=== PATIENT | female | born 1985 | race Caucasian/White ===

== ENCOUNTER → 2016-12-31 | Outpatient (CLI) | payer OTHER, MEDICAID | LOC: FIMAGING 15:39 | PROVIDERS: ATTEND Family Medicine | DX: M71.21 Synovial cyst of popliteal space [Baker], right knee (principal); M71.22 Synovial cyst of popliteal space [Baker], left knee; R60.9 Edema, unspecified ==

== ENCOUNTER → 2017-01-05 | Outpatient (CLI) | payer MEDICAID | LOC: FIMAGING 12:41 | PROVIDERS: ATTEND Family Medicine Sports Medicine | DX: M25.562 Pain in left knee (principal) ==

== ENCOUNTER → 2017-08-18 | Outpatient (CLI) | payer MEDICAID | LOC: FIMAGING 10:22 | PROVIDERS: ATTEND Family Medicine Sports Medicine | DX: M22.42 Chondromalacia patellae, left knee (principal) ==

== ENCOUNTER 2017-10-28 19:41 | Emergency (ER) | payer MEDICAID ==
--- NOTE | 2017-10-28 20:59 | EDPHY ---
H & P Time Seen by Provider: 10/28/17 20:35 HPI/ROS: CHIEF COMPLAINT: Right knee pain HISTORY OF PRESENT ILLNESS: Patient is a 32-year-old female presents emergency department right knee pain. Patient states that she was the passenger in the car when she got"OCD."This caused her to jump into the middle seat. She banged her knee on the middle seat. She had mild pain initially. She went home in her pain increased. She complains of right patellar discomfort. It does not radiate. She was able to ambulate. No numbness or tingling. No other injury. REVIEW OF SYSTEMS: Negative Past Medical/Surgical History: Includes hand surgery, cholecystectomy, tubal ligation Social history: The patient smokes Smoking Status: Light smoker Physical Exam: Vitals noted General Appearance: Alert and no distress. Head: Pupils equal. Normal. Respiratory: No respiratory distress. Cardiac: regular rate and rhythm. Extremities: [Patient's right leg appears normal. There is no significant swelling or bruising of the right patella. There is a small abrasion. The patient has mild right patellar tenderness to palpation with no crepitus. Patient has full range of motion of her right knee. Neurovascular intact distally.. Skin: No rashes or lesions. Neuro: Alert. Normal mood and affect. Constitutional: Initial Vital Signs Temperature (C) 36.8 C 10/28/17 20:07 Heart Rate 80 10/28/17 20:07 Respiratory Rate 16 10/28/17 20:07 O2 Sat (%) 98 10/28/17 20:07 O2 Delivery Mode Room Air Allergies/Adverse Reactions: No Known Allergies Allergy (Verified 10/28/17 20:07) Home Medications: Medication Instructions Recorded NK [No Known Home Meds] 10/16/15 Medical Decision Making ED Course/Re-evaluation: In the emergency department I discussed possible etiologies with the patient. I answered all her questions. X-ray of her right knee was ordered. knee x-ray: Please refer the dictated report. No acute disease noted. I discussed the results with the patient. I answered all her questions. Patient was given follow-up with Orthopedics. She will return with worsening symptoms. Differential Diagnosis: My differential includes but is not limited to fracture, dislocation, contusion , strain Departure - Departure Disposition: Home, Routine, Self-Care Clinical Impression: Contusion of right knee Qualifiers: Encounter type: initial encounter Qualified Code(s): S80.01XA - Contusion of right knee, initial encounter Condition: Good Instructions: Knee Pain (ED) Additional Instructions: Your x-ray was negative. Return with worsening symptoms or any other concerns. Referrals: Solomon Faustin MD [Primary Care Provider] - 5-7 days, call for appt.
[2017-10-28 21:17] VITALS: BP 130/76
== END 2017-10-28 21:16 | disposition home or self-care (01) ==
DX: S80.01XA Contusion of right knee, initial encounter (principal); F17.200 Nicotine dependence, unspecified, uncomplicated; X58.XXXA Exposure to other specified factors, initial encounter; Y92.810 Car as the place of occurrence of the external cause; Y99.8 Other external cause status; Y93.39 Activity, other involving climbing, rappelling and jumping off

== ENCOUNTER 2017-11-06 20:23 | Emergency (ER) | payer MEDICAID ==
[2017-11-06] MEDS ORDERED: PREPARATION H 51 GM CRTUBE PR ONE (21:10)
--- NOTE | 2017-11-06 21:11 | EDPHY ---
General Time Seen by Provider: 11/06/17 21:08 Narrative: CHIEF COMPLAINT: rectal pain, hemorrhoids HISTORY OF PRESENT ILLNESS: Patient complains of painful bowel movements rectal pain. This has been present for few days. She has no abdominal pain. No nausea, vomiting or diarrhea. No blood in the stool. She has been hesitant to have bowel movements due to the pain. She has tried stool softeners with no change. No history of inflammatory bowel or instrumentation. No trauma or injury. Minimal pain at rest. No other associated complaints or modifying factors REVIEW OF SYSTEMS: Ten systems reviewed and are negative unless otherwise noted in the HPI SPECIALISTS: None PAST MEDICAL HISTORY: Uncomplicated PAST SURGICAL HISTORY: No recent surgery SOCIAL HISTORY: Lives and works here independently. FAMILY HISTORY: Noncontributory EXAMINATION General Appearance: Alert, no distress Head: normocephalic, atraumatic Eyes: Pupils equal and round, no conjunctival pallor or injection ENT, Mouth: Mucous membranes moist Neck: Normal inspection, supple, non-tender Respiratory: Lungs are clear to auscultation Cardiovascular: Regular rate and rhythm Gastrointestinal: Abdomen is soft and nontender. No tympany rigidity. No guarding. Benign abdominal examination Rectal: Female RN (Faustina) present for exam. There are 2 external hemorrhoids at the 3 o'clock and 6 o'clock position that are nonthrombosed and nonbleeding. There is no abnormality of the perineum or perianal region. Neurological: A&O, nonfocal, normal gait Skin: Warm and dry, no rash. No cellulitis or abscess. Extremities: Nontender, no pedal edema Psychiatric: Mood and affect normal DIFFERENTIAL DIAGNOSES: Including but not limited to external hemorrhoids, internal hemorrhoids, perianal abscess, perirectal abscess MDM: 9:05 p.m. Two external hemorrhoids at the 3 o'clock and 6:00 position. These are not thrombosed. They are not actively bleeding. No evidence of perirectal or perineum cellulitis or abscess. I do feel she would benefit from topical treatment, oral pain medication and referral to gastroenterology and or primary care physician. I strongly recommended stool softeners and MiraLax of the next few days. I recommend increase fluid intake. I recommended return to emergency department cautions for any worsening pain, bleeding, difficulty with bowel movements. SUPERVISION: This patient was independently evaluated without direct involvement of or examination by the attending physician. - History Smoking Status: Light smoker - Objective Vital Signs: Initial Vital Signs Temperature (C) 97.9 F 11/06/17 20:25 Heart Rate 84 11/06/17 20:25 Respiratory Rate 20 11/06/17 20:25 Blood Pressure 100/71 11/06/17 20:25 O2 Sat (%) 99 11/06/17 20:25 O2 Delivery Mode Room Air Allergies/Adverse Reactions: No Known Allergies Allergy (Verified 10/28/17 20:07) Home Medications: Medication Instructions Recorded Hydrocortisone Acetate [Anucort-Hc] 25 mg RC QID #12 supp.rect 11/06/17 oxyCODONE HCL/ACETAMINOPHEN 1 each PO Q4-6PRN PRN #7 tablet 11/06/17 [Percocet 5-325 mg Tablet] Medications Given: Discontinued Medications Oxycodone/Acetaminophen (Percocet 5/325mg Prepack#4) 1 btl TAKEHOME EDNOW ONE Stop: 11/06/17 21:19 Last Admin: 11/06/17 21:25 Dose: 1 btl Phenyleph/Shark Oil/Glycerin/Petrol (Preparation H Cream) 1 delores OR EDNOW ONE Stop: 11/06/17 21:11 Last Admin: 11/06/17 21:25 Dose: 1 btl Departure - Departure Disposition: Home, Routine, Self-Care Clinical Impression: External hemorrhoids without complication Condition: Good Instructions: Oxycodone/Acetaminophen (By mouth), Laxative, Stool Softeners ( By mouth), Polyethylene Glycol 3350 (By mouth), Hemorrhoids (ED) Additional Instructions: 1. Percocet pain medication as prescribed as needed 2. Topical hemorrhoid therapy as prescribed as needed 3. Contact her primary care physician and the on-call GI physician as provided 4. ED precautions as discussed Referrals: Eloina Sellers MD [Primary Care Provider] - As per Instructions Prescriptions: Hydrocortisone Acetate [Anucort-Hc] 25 mg RC QID #12 supp.rect oxyCODONE HCL/ACETAMINOPHEN [Percocet 5-325 mg Tablet] 1 each PO Q4-6PRN PRN #7 tablet PRN Reason: Pain, Breakthrough
[2017-11-06] MEDS ORDERED: OXYCODONE/APAP 5/325MG PREPACK#4 BTL TAKEHOME ONE ×2 (21:18)
[2017-11-06 21:30] VITALS: BP 105/67
== END 2017-11-06 21:28 | disposition home or self-care (01) ==
DX: K64.4 Residual hemorrhoidal skin tags (principal); F17.200 Nicotine dependence, unspecified, uncomplicated

== ENCOUNTER → 2018-04-11 | Outpatient (CLI) | payer MEDICAID | LOC: FIMAGING 11:40 | PROVIDERS: ATTEND Family Medicine | DX: R05 Cough (principal); R06.02 Shortness of breath; R50.9 Fever, unspecified ==

== ENCOUNTER 2018-06-25 21:51 | Observation (INO) | payer MEDICAID ==
[2018-06-25] MEDS ORDERED: NS 1,000 ML IV ONE (21:58)
[2018-06-25] MEDS ORDERED: ONDANSETRON 4 MG/2 ML VIAL IVP ONE (21:58)
--- NOTE | 2018-06-25 21:58 | EDPHY ---
H & P Source: Patient, Old records Exam Limitations: No limitations - Personal History Tetanus Vaccine Date: 10 DAYS AG - Medical/Surgical History Hx Asthma: No Hx Chronic Respiratory Disease: No Hx Diabetes: No Hx Cardiac Disease: No Hx Renal Disease: No Hx Cirrhosis: No Hx Alcoholism: No Hx HIV/AIDS: No Hx Splenectomy or Spleen Trauma: No Other PMH: HAND SURGERY,CHOL, TUBAL LIGATION - Social History Smoking Status: Light smoker Time Seen by Provider: 06/25/18 21:56 HPI/ROS: HPI: This is a 33-year-old female who presents with Chief Complaint: Nausea, vomiting Location: GI Quality: Nausea, vomiting Duration: 2 hr prior to arrival Signs and Symptoms: no fever, + nausea, + vomiting, no hematemesis, no blood in stool, no abdominal bloating, no diarrhea, no back pain, no urinary symptoms, no vaginal bleeding/discharge, no indigestion, no chest pain, no shortness of breath Timing: Acute Severity: Moderate Context: The patient is generally healthy presents while driving down the [place] approximately 2 hr prior to arrival with sudden onset of dizziness and nausea accompanied by vomiting x4. She reports that she feels like she has chills and fatigue. She was feeling normal earlier in the day. Ate and drank without any difficulties. She has a history of cholecystectomy and tubal ligation. She called her when she pulled over to vomit the 1st time and told him that she did not feel well. She denies a headache, vision changes , room spinning, neck stiffness. Denies history of cardiac disease or family history of cardiac disease. Modifying Factors: None Comment: ROS: A comprehensive 10 system review of systems is otherwise negative aside from elements mentioned in the history of present illness. MEDICAL/SURGICAL/SOCIAL HISTORY: Medical history: Generally healthy. Does not take any regular medications. Surgical history: HAND SURGERY, cholecystectomy, TUBAL LIGATION Social history: Light smoker. . Denies alcohol and drug use. Family history noncontributory. CONSTITUTIONAL: Nontoxic-appearing adult white female, awake and alert, no obvious distress HEENT: Atraumatic and normocephalic, left pupil is equal and reactive; right pupil is sluggish; EOMI. Nares patent; no rhinorrhea; no nasal mucosal edema. Tympanic membranes clear. Oropharynx clear, no exudate and moist pink mucosa. Airway patent. No lymphadenopathy. No meningismus. Cardiovascular: Normal S1/S2, regular rate, regular rhythm, without murmur rub or gallop. PULMONARY/CHEST: Symmetrical and nontender. Clear to auscultation bilaterally. Good air movement. No accessory muscle usage. ABDOMEN: Soft, nondistended, nontender, no rebound, no guarding, no peritoneal signs, no masses or organomegaly. No CVAT. EXTREMITIES: 2/2 pulses, strength 5/5, no deformities, no clubbing, no cyanosis or edema. NEUROLOGICAL: no focal neuro deficits. GCS 15. SKIN: Warm and dry, cool to touch, no erythema. no rash. Good capillary refill. (Brenda Berrios) Constitutional: Initial Vital Signs Temperature (C) 36.5 C 06/25/18 21:59 Heart Rate 68 06/25/18 21:59 Respiratory Rate 16 06/25/18 21:59 Blood Pressure 113/75 06/25/18 21:59 O2 Sat (%) 100 06/25/18 21:59 O2 Delivery Mode Room Air Allergies/Adverse Reactions: No Known Allergies Allergy (Verified 06/25/18 21:57) Home Medications: Medication Instructions Recorded NK [No Known Home Meds] 06/25/18 Medical Decision Making - Diagnostics Imaging Results: Imaging Impressions Abdomen CT 06/25/18 21:58 Impression: 1. Intussuscepted loop of small bowel in the left upper quadrant of abdomen, likely jejunum, without obstruction. Recommend follow-up GI consult and upper endoscopy. 2. Mild constipation without bowel obstruction. 3. No appendicitis, abscess or pneumoperitoneum. 4. Nonobstructive right nephrolithiasis. Prominent bilateral ureters without evidence of ureterolithiasis. 5. Prior cholecystectomy without biliary ductal dilation. Findings and recommendations discussed with Emergency Department physicianBrenda at 22:40 hour, 06/25/2018. Final report concurs with initial preliminary interpretation. Head CT 06/25/18 22:02 Impression: 1. Normal CT brain without contrast. 2. Consider MRI of the brain, if there is continued clinical concern. Findings and recommendations discussed with Emergency Department physicianBrenda at 22:42 hour, 06/25/2018. Final report concurs with initial preliminary interpretation. ED Course/Re-evaluation: Vital signs reviewed and stable upon arrival. No systemic signs. Placed on diagnostic cardiac sonographer. IV access and laboratory studies along with head CT scan due to unequal pupils and dizziness and CT abdomen and pelvis scan due to sudden onset of nausea and vomiting. Urinalysis and EKG ordered. 2205: EKG shows normal sinus rhythm with artifact secondary to shaking from chills. Given 1 L normal saline and IV Zofran 4 mg Labs reviewed. No signs of leukocytosis/anemia/platelet dysfunction/SEAN/ elevated LFTs/electrolyte imbalance/pancreatitis/ACS/sepsis. 2240: called by, Dr. Jaeger, who advised that head CT scan shows no acute intracranial process. 2245: Called by radiologist, Dr. Jaeger, advised that CT abdomen and pelvis scan shows prior cholecystectomy, right breanna 4 mm stone nonobstructive, bilateral ureters are mildly dilated, right colon is full stool, no appendicitis , left upper quadrant proximal jejunum shows intussusception but no clear obstruction. 2250: ED decision to consult for admission. Patient is generally healthy with mild constipation and prior abdominal surgery. Spoke with Dr. Duckworth who kindly agrees to admit patient and provide further care and spoke with Dr. Zapata who reports that this is nonsurgical advises bowel rest and supportive care. 2310: Chart review shows that on 12/31/2015 Dr. Garvin performed in EEG that was essentially normal for"passing out spells." This patient was seen under the supervision of my secondary supervising physician. I evaluated care for this patient independently. Discussed this patient with Dr. Ramirez who did not see the patient. (Brenda Berrios) PHYSICIAN DOCUMENTATION: The patient was evaluated and managed by the Physician Financial Professional. My co- signature indicates that I have reviewed this chart and I agree with the findings and plan of care as documented. I am the secondary supervising physician. (Marla Ramirez) Differential Diagnosis: Dizziness including but not limited to peripheral and central causes of vertigo , orthostatic causes including dehydration, and blood loss. Abdominal pain including but not limited to appendicitis, cholecystitis, gastritis and urinary tract infection. (Brenda Berrios) - Data Points Laboratory Results: Laboratory Results 06/25/18 22:10 06/25/18 22:10 06/25/18 06/25/18 06/25/18 22:25 22:18 22:10 WBC RBC Hgb POC Hgb 13.9 gm/dL gm/dL (12.6-16.3) Hct POC Hct 41 % % (38-47) MCV MCH MCHC RDW Plt Count MPV Neut % (Auto) Lymph % (Auto) [place] % (Auto) Eos % (Auto) Baso % (Auto) Nucleat RBC Rel Count Absolute Neuts (auto) Absolute Lymphs (auto) Absolute Monos (auto) Absolute Eos (auto) Absolute Basos (auto) Absolute Nucleated RBC Immature Gran % Immature Gran # VBG Lactic Acid 2.0 mmol/L mmol/L (0.7-2.1) POC Sodium 143 mEq/L mEq/L (135-145) Sodium 140 mEq/L mEq/L (135-145) POC Potassium 3.5 mEq/L mEq/L (3.3-5.0) Potassium 3.9 mEq/L mEq/L (3.3-5.0) POC Chloride 106 mEq/L mEq/L (97-110) Chloride 109 mEq/L mEq/L (97-110) Carbon Dioxide 20 mEq/l L mEq/l (22-31) Anion Gap 11 mEq/L mEq/L (6-14) POC BUN 13 mg/dL mg/dL (7-23) BUN 14 mg/dL mg/dL (7-23) Creatinine 1.0 mg/dL mg/dL (0.6-1.0) POC Creatinine 0.9 mg/dL mg/dL (0.6-1.0) Estimated GFR > 60 Glucose 103 mg/dL H mg/dL (70-100) POC Glucose 106 mg/dL H mg/dL (70-100) Calcium 9.8 mg/dL mg/dL (8.5-10.4) Total Bilirubin 0.7 mg/dL mg/dL (0.1-1.4) Conjugated Bilirubin 0.2 mg/dL mg/dL (0.0-0.5) Unconjugated Bilirubin 0.5 mg/dL mg/dL (0.0-1.1) AST 20 IU/L IU/L (14-46) ALT 16 IU/L IU/L (9-52) Alkaline Phosphatase 65 IU/L IU/L (38-126) Total Protein 7.8 g/dL g/dL (6.3-8.2) Albumin 4.7 g/dL g/dL (3.5-5.0) Lipase 144 IU/L IU/L (23-300) Ethyl Alcohol < 10 mg/dL mg/dL (0-10) 06/25/18 22:10 WBC 9.49 10^3/uL 10^3/uL (3.80-9.50) RBC 4.61 10^6/uL 10^6/uL (4.18-5.33) Hgb 13.7 g/dL g/dL (12.6-16.3) POC Hgb Hct 40.2 % % (38.0-47.0) POC Hct MCV 87.2 fL fL (81.5-99.8) MCH 29.7 pg pg (27.9-34.1) MCHC 34.1 g/dL g/dL (32.4-36.7) RDW 13.2 % % (11.5-15.2) Plt Count 273 10^3/uL 10^3/uL (150-400) MPV 10.0 fL fL (8.7-11.7) Neut % (Auto) 62.4 % % (39.3-74.2) Lymph % (Auto) 21.4 % % (15.0-45.0) [place] % (Auto) 13.9 % H % (4.5-13.0) Eos % (Auto) 1.4 % % (0.6-7.6) Baso % (Auto) 0.5 % % (0.3-1.7) Nucleat RBC Rel Count 0.0 % % (0.0-0.2) Absolute Neuts (auto) 5.92 10^3/uL 10^3/uL (1.70-6.50) Absolute Lymphs (auto) 2.03 10^3/uL 10^3/uL (1.00-3.00) Absolute Monos (auto) 1.32 10^3/uL H 10^3/uL (0.30-0.80) Absolute Eos (auto) 0.13 10^3/uL 10^3/uL (0.03-0.40) Absolute Basos (auto) 0.05 10^3/uL 10^3/uL (0.02-0.10) Absolute Nucleated RBC 0.00 10^3/uL 10^3/uL (0-0.01) Immature Gran % 0.4 % % (0.0-1.1) Immature Gran # 0.04 10^3/uL 10^3/uL (0.00-0.10) VBG Lactic Acid POC Sodium Sodium POC Potassium Potassium POC Chloride Chloride Carbon Dioxide Anion Gap POC BUN BUN Creatinine POC Creatinine Estimated GFR Glucose POC Glucose Calcium Total Bilirubin Conjugated Bilirubin Unconjugated Bilirubin AST ALT Alkaline Phosphatase Total Protein Albumin Lipase Ethyl Alcohol Medications Given: Potassium Chloride/Dextrose/Sod Cl (D5w 1/2 Ns W/ 20 Kcl/L) 1,000 mls @ 100 mls /hr IV CONT YASSINE Stop: 12/22/18 22:59 Last Admin: 06/25/18 23:54 Dose: 1,000 mls Discontinued Medications Sodium Chloride (Ns) 1,000 mls @ 0 mls/hr IV EDNOW ONE; Wide Open PRN Reason: Protocol Stop: 06/25/18 21:59 Last Admin: 06/25/18 22:06 Dose: 1,000 mls Ondansetron HCl (Zofran) 4 mg IVP EDNOW ONE Stop: 06/25/18 21:59 Last Admin: 06/25/18 23:25 Dose: Not Given Point of Care Test Results: Chemistry 06/25/18 22:18 POC Sodium 143 mEq/L mEq/L (135-145) POC Potassium 3.5 mEq/L mEq/L (3.3-5.0) POC Chloride 106 mEq/L mEq/L (97-110) POC BUN 13 mg/dL mg/dL (7-23) POC Creatinine 0.9 mg/dL mg/dL (0.6-1.0) POC Glucose 106 mg/dL H mg/dL (70-100) ISTAT H&H 06/25/18 22:18 POC Hgb 13.9 gm/dL gm/dL (12.6-16.3) POC Hct 41 % % (38-47) Departure - Departure Disposition: [facility] Acute Clinical Impression: Intussusception of small intestine Condition: Fair
[2018-06-25] MEDS ORDERED: IOPAMIDOL (ISOVUE-300) 100 ML BTL ONE (22:11)
[2018-06-25 22:29] LABS: PLATELET COUNT 273 10^3/uL (150-400)
[2018-06-25] MEDS ORDERED: ONDANSETRON DISINTEGRATING 4 MG TAB PO PRN (23:00)
[2018-06-25] MEDS ORDERED: ONDANSETRON 4 MG/2 ML VIAL IVP PRN (23:00)
[2018-06-25] MEDS ORDERED: D5W 1/2 NS W/ 20 KCl/L 1,000 ML IV SCH (23:00)
[2018-06-25] MEDS ORDERED: ACETAMINOPHEN 325 MG TAB PO PRN (23:00)
--- NOTE | 2018-06-25 23:25 | PDGENHP ---
History and Physical - Chief Complaint Vomiting - History of Present Illness 33 yo F w/ minimal PMHx presents with acute onset dizziness and vomiting. The patient was driving today when she felt dizzy and then nauseous. She pulled over and vomited several times. This persisted so she came to the ED. In the ED her evaluation is notable for intussusception of the small bowel. Her symptoms have now resolved without intervention. She is being admitted for observation and possible further work-up. Case discussed with ED HEATH Berrios; records reviewed and summarized above. History Information - Allergies/Home Medication List Allergies/Adverse Reactions: No Known Allergies Allergy (Verified 06/25/18 21:57) Home Medications: NK [No Known Home Meds] 06/25/18 [Last Taken Unknown] I have personally reviewed and updated: family history, medical history - Past Medical History no pertinent PMH - Surgical History Reports: cholecystectomy Additional surgical history: Tubal ligation - Family History Additional family history: Asked, denies - Social History Smoking Status: Light smoker Review of Systems Review of Systems: ROS: 10pt was reviewed & negative except for what was stated in HPI & below Physical Exam Physical Exam: Temp Pulse Resp BP Pulse Ox 36.5 C 68 16 113/75 100 06/25/18 21:59 06/25/18 21:59 06/25/18 21:59 06/25/18 21:59 06/25/18 21:59 Constitutional: no apparent distress, not in pain Eyes: PERRL, EOMI Ears, Nose, Mouth, Throat: moist mucous membranes, no oral mucosal ulcers Cardiovascular: regular rate and rhythym, no murmur, rub, or gallop Respiratory: no respiratory distress, no rales or rhonchi Gastrointestinal: normoactive bowel sounds, tenderness ([place]-umbilical), No guarding, No distension Skin: warm, normal color Musculoskeletal: full muscle strength, no muscle tenderness Neurologic: AAOx3, CN II-XII Intact Psychiatric: interacting appropriately, not anxious Lab Data & Imaging Review 06/25/18 22:10 06/25/18 22:10 WBC 9.49 10^3/uL (3.80-9.50) 06/25/18 22:10 RBC 4.61 10^6/uL (4.18-5.33) 06/25/18 22:10 Hgb 13.7 g/dL (12.6-16.3) 06/25/18 22:10 POC Hgb 13.9 gm/dL (12.6-16.3) 06/25/18 22:18 Hct 40.2 % (38.0-47.0) 06/25/18 22:10 POC Hct 41 % (38-47) 06/25/18 22:18 MCV 87.2 fL (81.5-99.8) 06/25/18 22:10 MCH 29.7 pg (27.9-34.1) 06/25/18 22:10 MCHC 34.1 g/dL (32.4-36.7) 06/25/18 22:10 RDW 13.2 % (11.5-15.2) 06/25/18 22:10 Plt Count 273 10^3/uL (150-400) 06/25/18 22:10 MPV 10.0 fL (8.7-11.7) 06/25/18 22:10 Neut % (Auto) 62.4 % (39.3-74.2) 06/25/18 22:10 Lymph % (Auto) 21.4 % (15.0-45.0) 06/25/18 22:10 [place] % (Auto) 13.9 % (4.5-13.0) H 06/25/18 22:10 Eos % (Auto) 1.4 % (0.6-7.6) 06/25/18 22:10 Baso % (Auto) 0.5 % (0.3-1.7) 06/25/18 22:10 Nucleat RBC Rel Count 0.0 % (0.0-0.2) 06/25/18 22:10 Absolute Neuts (auto) 5.92 10^3/uL (1.70-6.50) 06/25/18 22:10 Absolute Lymphs (auto) 2.03 10^3/uL (1.00-3.00) 06/25/18 22:10 Absolute Monos (auto) 1.32 10^3/uL (0.30-0.80) H 06/25/18 22:10 Absolute Eos (auto) 0.13 10^3/uL (0.03-0.40) 06/25/18 22:10 Absolute Basos (auto) 0.05 10^3/uL (0.02-0.10) 06/25/18 22:10 Absolute Nucleated RBC 0.00 10^3/uL (0-0.01) 06/25/18 22:10 Immature Gran % 0.4 % (0.0-1.1) 06/25/18 22:10 Immature Gran # 0.04 10^3/uL (0.00-0.10) 06/25/18 22:10 VBG Lactic Acid 2.0 mmol/L (0.7-2.1) 06/25/18 22:25 POC Sodium 143 mEq/L (135-145) 06/25/18 22:18 Sodium 140 mEq/L (135-145) 06/25/18 22:10 POC Potassium 3.5 mEq/L (3.3-5.0) 06/25/18 22:18 Potassium 3.9 mEq/L (3.3-5.0) 06/25/18 22:10 POC Chloride 106 mEq/L (97-110) 06/25/18 22:18 Chloride 109 mEq/L (97-110) 06/25/18 22:10 Carbon Dioxide 20 mEq/l (22-31) L 06/25/18 22:10 Anion Gap 11 mEq/L (6-14) 06/25/18 22:10 POC BUN 13 mg/dL (7-23) 06/25/18 22:18 BUN 14 mg/dL (7-23) 06/25/18 22:10 Creatinine 1.0 mg/dL (0.6-1.0) 06/25/18 22:10 POC Creatinine 0.9 mg/dL (0.6-1.0) 06/25/18 22:18 Estimated GFR > 60 06/25/18 22:10 Glucose 103 mg/dL (70-100) H 06/25/18 22:10 POC Glucose 106 mg/dL (70-100) H 06/25/18 22:18 Calcium 9.8 mg/dL (8.5-10.4) 06/25/18 22:10 Total Bilirubin 0.7 mg/dL (0.1-1.4) 06/25/18 22:10 Conjugated Bilirubin 0.2 mg/dL (0.0-0.5) 06/25/18 22:10 Unconjugated Bilirubin 0.5 mg/dL (0.0-1.1) 06/25/18 22:10 AST 20 IU/L (14-46) 06/25/18 22:10 ALT 16 IU/L (9-52) 06/25/18 22:10 Alkaline Phosphatase 65 IU/L (38-126) 06/25/18 22:10 Total Protein 7.8 g/dL (6.3-8.2) 06/25/18 22:10 Albumin 4.7 g/dL (3.5-5.0) 06/25/18 22:10 Lipase 144 IU/L (23-300) 06/25/18 22:10 Ethyl Alcohol < 10 mg/dL (0-10) 06/25/18 22:10 Imaging Review: Imaging Impressions Abdomen CT 06/25/18 21:58 Impression: 1. Intussuscepted loop of small bowel in the left upper quadrant of abdomen, likely jejunum, without obstruction. Recommend follow-up GI consult and upper endoscopy. 2. Mild constipation without bowel obstruction. 3. No appendicitis, abscess or pneumoperitoneum. 4. Nonobstructive right nephrolithiasis. Prominent bilateral ureters without evidence of ureterolithiasis. 5. Prior cholecystectomy without biliary ductal dilation. Findings and recommendations discussed with Emergency Department physicianBrenda at 22:40 hour, 06/25/2018. Final report concurs with initial preliminary interpretation. Head CT 06/25/18 22:02 Impression: 1. Normal CT brain without contrast. 2. Consider MRI of the brain, if there is continued clinical concern. Findings and recommendations discussed with Emergency Department physician, Brenda Berrios at 22:42 hour, 06/25/2018. Final report concurs with initial preliminary interpretation. Assessment & Plan Assessment: 33 yo F presents with vomiting and found to have intussusception of the small bowel. Plan: 1. Intussusception - Presented with acute vomiting. CT scan demonstrated ( personally reviewed/interpreted) intussuscepted loop of small bowel in the left upper quadrant of abdomen, likely jejunum, without obstruction. - Admit for observation - Maintain NPO, mIVF - Consult GI in the morning to discuss possibility of endoscopic evaluation Diet - NPO, mIVF Code - Full Ppx - Low risk, ambulate TID Dispo - Admit under observation status
--- NOTE | 2018-06-26 04:06 | CPEKG ---
Test Reason : OPEN Blood Pressure : / mmHG Vent. Rate : 070 BPM Atrial Rate : 069 BPM P-R Int : 196 ms QRS Dur : 074 ms QT Int : 400 ms P-R-T Axes : 071 076 062 degrees QTc Int : 432 ms Sinus rhythm Confirmed by Marla Ramirez ([id number]) on 06/26/2018 4:06:19 AM Referred By: Confirmed By:Marla Ramirez
[2018-06-26 05:24] LABS: PLATELET COUNT 247 10^3/uL (150-400)
[2018-06-26 07:52] VITALS: BP 104/69
--- NOTE | 2018-06-26 14:28 | ASMTCMCOM ---
CM Note CM Note Notes: Pt is a 33 y/o female admitted for abdominal pain, nausea and vomiting. Pt was driving when these sx onset. Pt is negative for substances. Surgery has been consulted. Pt does not need surgery. Pt required shoes at time of d/c. The only option that was available in a 9.5 were sandals. CM provided sandals to pt. Pt reports that it is not acceptable. Pt states that she needs to speak to the internet technology manager. Pt raised her voice and started cursing myself and her discharging nurse out. Her nurse informed her if she didn't lower her voice that security would have to be called to escort her out. Pt continued to curse myself and the nurse out. CM informed pt her behavior was not tolerated and I would need to call security if she continue to behave the way she did. Pt called CM a 'little b*itch'. Pt processed to leave 3E cursing. Pt does not have any needs. Plan: Independent Date Signed: 06/26/2018 02:27 PM Electronically Signed By:STACEY Fernando
--- NOTE | 2018-06-26 14:33 | ASMTLACE ---
ITALO Length of stay for Answers: 1 day current admission Acuity / Level of Answers: No Care: Did the patient have an inpatient admission? # of Emergency department Answers: 1-2 visits in the last 6 months Score: 2 Date Signed: 06/26/2018 02:32 PM Electronically Signed By:STACEY Fernando
--- NOTE | 2018-06-26 18:25 | GDS ---
DISCHARGE DIAGNOSIS: Intussusception. HISTORY OF PRESENT ILLNESS/HOSPITAL COURSE: The patient is a 33-year-old female with no major past m edical history who developed nausea with significant vomiting while she was driving in her car. The emesis was nonbloody. She states that she pulled over and started to feel lightheaded and at that po int in time called 911. They brought her to the [facility] Emergency Room where she had further evaluation with a CT scan of her abdomen. This showed an intussusceptive loop of small b owel in the left upper quadrant of the abdomen, likely jejunum, without obstruction. A GI consult wi upper endoscopy was recommended. She was admitted for observation and, fortunately, did quite wel l. She had a bowel movement the morning after she was admitted and had no further nausea or emesis. Considering the improvement, the patient requested for discharge from the hospital. We discussed e issue of the upper endoscopy. She states that she has had an upper endoscopy in the past. I asked her about the indication for this. She stated that she had a period of methamphetamine abuse approx imately 10-11 years ago and after she stopped, she requested for an endoscopy to be done to ensure sh e had no damage to her esophagus or stomach as she was taking capsules of methamphetamines. She does not recall any abnormalities from this initial endoscopy. I discussed the importance of doing an en doscopy to ensure she does not have any evidence of a mass or tumor and to look for other more benign causes of intussusception such as polyps. She demonstrated understanding and was agreeable to sched uling the endoscopy to be done as an outpatient. I did also encourage her to schedule a followup vis it with her primary provider to review this hospitalization and ensure her symptoms are not recurrent . I did discuss with her if her nausea and vomiting does recur in the coming days, that it would be very reasonable to return back to the emergency room to expedite having an upper endoscopy. DISCHARGE PHYSICAL EXAMINATION: VITAL SIGNS: Temperature 36.8, blood pressure 104/69, heart rate 87 , respirations 12, sating 96% on room air. GENERAL: Patient appeared comfortable. She was awake, a lert, conversant in no acute distress. HEART: Regular rate and rhythm. No murmurs noted. LUNGS: Normal respiratory effort and clear on auscultation. ABDOMEN: Soft, nontender, nondistended. Normal bowel sounds. : No South catheter in place. EXTREMITIES: No significant edema. NOTABLE STUDIES: CT scan of the head: Normal. CT abdomen and pelvis showed intussuscepted loop of small bowel in left upper quadrant of abdomen, li skye jejunum, without obstruction. Recommend followup GI consult and upper endoscopy. Mild constipa tion without bowel obstruction. No appendicitis, abscess, or pneumoperitoneum. Nonobstructive right nephrolithiasis. Prominent bilateral ureters without evidence of ureterolithiasis. Prior cholecyst ectomy without biliary duct dilatation. DISCHARGE MEDICATIONS: None. DISCHARGE INSTRUCTIONS: A followup with her cell attendant helper at [facility] and her primary care provider is recommended within the next 1 month for reassessment of her symptoms and to discuss further evaluation with an endoscopy. /[id number]/MODL
== END 2018-06-26 09:24 | disposition home or self-care (01) ==
LOC: EDUNIT# → F3E 23:28
PROVIDERS: ADMIT Student in an Organized Health Care Education/Training Program; ATTEND Internal Medicine
DX: K56.1 Intussusception (principal); E86.9 Volume depletion, unspecified; N20.0 Calculus of kidney; F17.200 Nicotine dependence, unspecified, uncomplicated
CPT/HCPCS: 70450; 74177; 93005; 96360; 99285; G0378; 80305; 82435-PO; 82565-PO; 82947-PO; 84132-PO; 84295-PO; 84484-PO; 84520-PO; 85014-PO; G0480; Q9967

== ENCOUNTER → 2018-09-05 | Outpatient (CLI) | payer MEDICAID ==
[~2018-09-05] MED LIST: GADOBUTROL 10 ML VIAL IVP ONE; GLUCAGON HCL 0.3 MG in SYRINGE 0.3 ML IVP ONE
== END ==
LOC: FIMAGING 10:11
PROVIDERS: ATTEND Physician Assistant Medical
DX: K56.1 Intussusception (principal)
CPT/HCPCS: 83516-90; A9585; J1610